=== PATIENT | male | born 1980 | race Caucasian/White ===

== ENCOUNTER 2021-01-22 14:24 | Inpatient (IN) | payer OTHER ==
[2021-01-22] MEDS ORDERED: SODIUM CHLORIDE 0.9% 500 ML INFUS.BAG IV ONE (15:26)
[2021-01-22] MEDS ORDERED: ACETAMINOPHEN 1000 MG/100 ML VIAL (NON FORMULARY) IVPB ONE (15:26)
[2021-01-22] MEDS ORDERED: SODIUM CHLORIDE 2,014 ML IV ONE (15:45)
[2021-01-22] MEDS ORDERED: ACETAMINOPHEN INJECTION 100 ML IVPB ONE (16:16)
[2021-01-22 16:58] LABS: HEMATOCRIT 35.2 % (35.4-49); HEMOGLOBIN 12.1 GM/dL (11.7-16.9); MCH 32.1 pg (25.7-33.7); MCHC 34.3 g/dl (32.0-35.9); MEAN CELL VOLUME 93.4 fl (80-96); PLATELET COUNT 248 10^3/uL (134-434); RBC 3.77 M/mm3 (4.00-5.60); RDW 13.3 % (11.9-15.9); WHITE BLOOD COUNT 12.4 K/mm3 (4.0-10.0)
[2021-01-22 17:08] LABS: CHLORIDE 91 mmol/L (98-107); SODIUM 129 mmol/L (136-145)
[2021-01-22 17:09] LABS: INR 1.26 (0.83-1.09); PROTHROMBIN TIME (PATIENT) 15.4 SEC (9.7-13.0)
[2021-01-22 17:10] LABS: CALCIUM 8.2 mg/dL (8.5-10.1)
[2021-01-22 17:11] LABS: ACTIVATED PTT 31.9 SECONDS (25.2-36.5); ALBUMIN 2.4 g/dl (3.4-5.0); ANION GAP 10 MMOL/L (8-16); BLOOD UREA NITROGEN 18.7 mg/dL (7-18); CO2 27 mmol/L (21-32); GLUCOSE,RANDOM 90 mg/dL (74-106)
[2021-01-22 17:14] LABS: CREATININE 1.2 mg/dL (0.55-1.3); SGOT/AST 22 U/L (15-37); SGPT/ALT 28 U/L (13-61)
[2021-01-22 17:15] LABS: BILIRUBIN,TOTAL 0.9 mg/dL (0.2-1); TOT PROT 7.1 g/dl (6.4-8.2)
[2021-01-22 17:16] LABS: ALK PHOS 118 U/L (45-117)
[2021-01-22 18:23] LABS: HIV INTERPRETATION NEGATIVE (NEGATIVE)
[2021-01-22 18:31] LABS: EPI CELLS 12 /uL (0-25.1); HYALINE CASTS 7 /uL (0-3.1); URINE APPEARANCE CLEAR; URINE BACTERIA 42 /uL (0-1359); URINE BILIRUBIN 1+ (NEGATIVE); URINE COLOR DK YELLOW; URINE GLUCOSE (UA) NEGATIVE (NEGATIVE); URINE KETONE TRACE (NEGATIVE); URINE LEUK ESTERASE NEGATIVE (NEGATIVE); URINE NITRITE NEGATIVE (NEGATIVE); URINE PROTEIN 1+ (NEGATIVE); URINE RBC 53 /uL (0-23.9); URINE UROBILINOGEN >=8.0 E.U./dl mg/dL (0.2-1.0); URINE WBC 30 /uL (0-25.8)
[2021-01-22] MEDS ORDERED: PIPERACILLIN/TAZOBACTAM 4.5 GM VIAL IVPB ONE (18:32)
[2021-01-22] MEDS ORDERED: VANCOMYCIN 1 GRAM (PRE-DOCKED) 1,000 MG/250 ML BAG IVPB ONE (18:32)
[2021-01-22] MEDS ORDERED: VANCOMYCIN 1,000 MG in DEXTROSE 5%-WATER - 250 ML IVPB ONE (18:32)
[2021-01-22] MEDS ORDERED: PIPERACILLIN/TAZOB 4.5 GM 4.5 GM/100 ML BAG IVPB ONE (19:23)
[2021-01-22] MEDS ORDERED: SENNOSIDES 8.6MG TABLET (FP) PO PRN (22:01)
[2021-01-22] MEDS ORDERED: SODIUM CHLORIDE 1,000 ML IV SCH (22:15)
[2021-01-22] MEDS ORDERED: DEXTROSE 5%-WATER 100 ML IVPB ONE (22:24)
[2021-01-22] MEDS ORDERED: DOXYCYCLINE HYCLATE 100 MG VIAL ONE (22:24)
[2021-01-22] MEDS: PIPERACILLIN/TAZOB 4.5 GM 4.5 GM in DEXTROSE 5%-WATER 100 ML IVPB SCH (22:33)
[2021-01-22 23:26] VITALS: BMI 20.9
[2021-01-22] MEDS: DOXYCYCLINE INJECTION 100 MG in DEXTROSE 5%-WATER 100 ML IVPB SCH (23:58)
[2021-01-23] MEDS ORDERED: DEXTROSE 5%-WATER 100 ML IVPB ONE ×6 (02:47→22:16)
[2021-01-23] MEDS ORDERED: PIPERACILLIN/TAZOBACTAM 4.5 GM VIAL IVPB ONE ×4 (02:47→22:16)
[2021-01-23] MEDS: PIPERACILLIN/TAZOB 4.5 GM 4.5 GM in DEXTROSE 5%-WATER 100 ML IVPB SCH ×3 (03:22→16:44)
[2021-01-23] MEDS ORDERED: methaDONE HCL 10 MG TABLET (FOR DETOX USE ONLY) PO SCH (06:46)
[2021-01-23] MEDS ORDERED: methaDONE HCL 10 MG TABLET ONE (06:52)
[2021-01-23] MEDS ORDERED: methaDONE HCL 40 MG DISPERSABLE TABLET ONE (06:52)
[2021-01-23] MEDS: methaDONE 80 MG, methaDONE 10 MG PO SCH (06:53)
[2021-01-23 08:35] LABS: BASO % 0.3 % (0-2.0); EOS % 1.8 % (0-4.5); HEMATOCRIT 33.2 % (35.4-49); HEMOGLOBIN 11.3 GM/dL (11.7-16.9); LYMPH % 5.3 % (8-40); MCH 32.4 pg (25.7-33.7); MCHC 33.9 g/dl (32.0-35.9); MEAN CELL VOLUME 95.5 fl (80-96); MEAN PLT VOLUME 8.5 fl (7.5-11.1); MONO % 13.7 % (3.8-10.2); NEUT % 78.9 % (42.8-82.8); PLATELET COUNT 240 10^3/uL (134-434); RBC 3.47 M/mm3 (4.00-5.60); WHITE BLOOD COUNT 17.3 K/mm3 (4.0-10.0)
[2021-01-23 08:51] LABS: BLOOD UREA NITROGEN 12.1 mg/dL (7-18); CALCIUM 7.4 mg/dL (8.5-10.1); MAGNESIUM 1.7 mg/dL (1.8-2.4)
[2021-01-23 08:55] LABS: CREATININE 0.9 mg/dL (0.55-1.3); PHOSPHOROUS 2.5 mg/dL (2.5-4.9)
[2021-01-23 08:56] LABS: BILIRUBIN,TOTAL 0.8 mg/dL (0.2-1); TOT PROT 5.6 g/dl (6.4-8.2)
[2021-01-23 08:58] LABS: ALBUMIN 1.8 g/dl (3.4-5.0)
[2021-01-23 09:36] LABS: PHENCYCLIDINE,URINE NEGATIVE (NEGATIVE); URINE BARBITURATES NEGATIVE (NEGATIVE)
[2021-01-23 10:13] LABS: COCAINE, UR POSITIVE (NEGATIVE); METHADONE, UR POSITIVE (NEGATIVE); OPIATES, URI POSITIVE (NEGATIVE); URINE AMPHETAMINES POSITIVE (NEGATIVE); URINE BENZODIAZEPINES POSITIVE (NEGATIVE)
[2021-01-23] MEDS: SODIUM CHLORIDE 1,000 ML IV SCH (10:20)
[2021-01-23 10:21] LABS: ANISOCYTOSIS 0; MACROCYTOSIS 0; PLATELET ESTIMATE NORMAL
[2021-01-23] MEDS ORDERED: DOXYCYCLINE HYCLATE 100 MG VIAL ONE ×2 (12:19→21:16)
[2021-01-23] MEDS: DOXYCYCLINE INJECTION 100 MG in DEXTROSE 5%-WATER 100 ML IVPB SCH ×2 (12:50→22:59)
[2021-01-23] MEDS: KCL 10 MEQ IVPB 10 MEQ/100 ML INFUS.BAG IVPB SCH ×4 (14:50→19:25)
[2021-01-23] MEDS: ACETAMINOPHEN 325 MG TABLET (FP) PO PRN (14:52)
[2021-01-23] MEDS ORDERED: PIPERACILLIN/TAZOB 4.5 GM 4.5 GM in DEXTROSE 5%-WATER 100 ML IVPB SCH (21:45)
[2021-01-24] MEDS: PIPERACILLIN/TAZOB 4.5 GM 4.5 GM in DEXTROSE 5%-WATER 100 ML IVPB SCH ×4 (00:02→19:51)
[2021-01-24] MEDS ORDERED: PIPERACILLIN/TAZOBACTAM 4.5 GM VIAL IVPB ONE ×3 (00:07→16:20)
[2021-01-24] MEDS ORDERED: DEXTROSE 5%-WATER 100 ML IVPB ONE ×5 (00:07→20:22)
[2021-01-24] MEDS ORDERED: methaDONE HCL 40 MG DISPERSABLE TABLET ONE (05:11)
[2021-01-24] MEDS ORDERED: methaDONE HCL 10 MG TABLET ONE (05:11)
[2021-01-24] MEDS: methaDONE 80 MG, methaDONE 10 MG PO SCH (05:18)
[2021-01-24] MEDS: SODIUM CHLORIDE 1,000 ML IV SCH ×2 (05:39→15:37)
[2021-01-24 09:19] LABS: BASO % 0.4 % (0-2.0); EOS % 1.4 % (0-4.5); HEMATOCRIT 31.6 % (35.4-49); HEMOGLOBIN 10.9 GM/dL (11.7-16.9); MCH 32.5 pg (25.7-33.7); MCHC 34.4 g/dl (32.0-35.9); MEAN CELL VOLUME 94.6 fl (80-96); MEAN PLT VOLUME 8.2 fl (7.5-11.1); MONO % 10.1 % (3.8-10.2); NEUT % 84.1 % (42.8-82.8); PLATELET COUNT 260 10^3/uL (134-434); RBC 3.34 M/mm3 (4.00-5.60); RDW 13.2 % (11.9-15.9); WHITE BLOOD COUNT 16.7 K/mm3 (4.0-10.0)
[2021-01-24 10:10] LABS: CALCIUM 7.5 mg/dL (8.5-10.1)
[2021-01-24 10:11] LABS: BLOOD UREA NITROGEN 6.1 mg/dL (7-18)
[2021-01-24 10:14] LABS: CREATININE 0.6 mg/dL (0.55-1.3)
[2021-01-24] MEDS ORDERED: MAGNESIUM 2GM/50ML STERILE WATER IVPB IVPB ONE ×2 (10:35→18:15)
[2021-01-24] MEDS ORDERED: DOXYCYCLINE HYCLATE 100 MG VIAL ONE ×2 (10:41→20:21)
[2021-01-24 10:58] LABS: ANISOCYTOSIS 1+; MACROCYTOSIS 0; PLATELET ESTIMATE NORMAL
[2021-01-24] MEDS: DOXYCYCLINE INJECTION 100 MG in DEXTROSE 5%-WATER 100 ML IVPB SCH ×2 (11:41→21:02)
[2021-01-24] MEDS: guaiFENesin 600 MG TABLET.ER (FP) PO SCH ×2 (13:53→21:02)
[2021-01-24] MEDS: KCL 10 MEQ IVPB 10 MEQ/100 ML INFUS.BAG IVPB SCH ×3 (15:18→19:59)
[2021-01-24] MEDS: guaiFENesin/CODEINE 10 ML UNIT-DOSE CUPS PO PRN ×2 (15:38→23:35)
[2021-01-24] MEDS ORDERED: POTASSIUM CHLORIDE TABS 20 MEQ TABLET.ER (FP) PO ONE (19:57)
[2021-01-24] MEDS: ACETAMINOPHEN 325 MG TABLET (FP) PO PRN (22:11)
[2021-01-24] MEDS ORDERED: SODIUM CHLORIDE 1,000 ML IV STA (22:46)
[2021-01-25] MEDS ORDERED: PIPERACILLIN/TAZOBACTAM 4.5 GM VIAL IVPB ONE ×3 (01:27→16:57)
[2021-01-25] MEDS ORDERED: DEXTROSE 5%-WATER 100 ML IVPB ONE ×5 (01:27→20:50)
[2021-01-25] MEDS: PIPERACILLIN/TAZOB 4.5 GM 4.5 GM in DEXTROSE 5%-WATER 100 ML IVPB SCH ×3 (01:42→17:19)
[2021-01-25] MEDS ORDERED: methaDONE HCL 40 MG DISPERSABLE TABLET ONE (04:59)
[2021-01-25] MEDS ORDERED: methaDONE HCL 10 MG TABLET ONE (05:00)
[2021-01-25] MEDS: methaDONE 80 MG, methaDONE 10 MG PO SCH (05:05)
[2021-01-25] MEDS: SODIUM CHLORIDE 1,000 ML IV SCH ×2 (08:54→12:15)
[2021-01-25] MEDS: guaiFENesin/CODEINE 10 ML UNIT-DOSE CUPS PO PRN ×2 (08:54→17:19)
[2021-01-25 08:58] LABS: BASO % 0.3 % (0-2.0); EOS % 2.4 % (0-4.5); HEMATOCRIT 31.6 % (35.4-49); HEMOGLOBIN 10.8 GM/dL (11.7-16.9); LYMPH % 5.3 % (8-40); MCH 32.8 pg (25.7-33.7); MCHC 34.2 g/dl (32.0-35.9); MEAN PLT VOLUME 7.7 fl (7.5-11.1); MONO % 8.6 % (3.8-10.2); NEUT % 83.4 % (42.8-82.8); PLATELET COUNT 302 10^3/uL (134-434); RBC 3.29 M/mm3 (4.00-5.60); RDW 13.7 % (11.9-15.9); WHITE BLOOD COUNT 11.8 K/mm3 (4.0-10.0)
[2021-01-25 09:22] LABS: BLOOD UREA NITROGEN 4.6 mg/dL (7-18); CALCIUM 7.6 mg/dL (8.5-10.1)
[2021-01-25 09:25] LABS: CREATININE 0.6 mg/dL (0.55-1.3)
[2021-01-25] MEDS ORDERED: DOXYCYCLINE HYCLATE 100 MG VIAL ONE ×2 (09:52→20:50)
[2021-01-25] MEDS: guaiFENesin 600 MG TABLET.ER (FP) PO SCH ×2 (10:29→21:16)
[2021-01-25] MEDS: DOXYCYCLINE INJECTION 100 MG in DEXTROSE 5%-WATER 100 ML IVPB SCH ×2 (10:29→21:16)
[2021-01-25] MEDS: VANCOMYCIN 1 GM in D5W (PRE-DOCKED) 1,000 MG/250 ML IVPB SCH (12:15)
[2021-01-25 12:40] LABS: ANISOCYTOSIS 1+; MACROCYTOSIS 0; PLATELET ESTIMATE NORMAL; TOXIC GRANULATION 2+
[2021-01-25] MEDS: ACETAMINOPHEN 325 MG TABLET (FP) PO PRN (17:19)
[2021-01-25] MEDS: LORazepam 1 MG TABLET PO PRN (21:15)
[2021-01-26] MEDS: VANCOMYCIN 1 GM in D5W (PRE-DOCKED) 1,000 MG/250 ML IVPB SCH ×3 (00:24→23:40)
[2021-01-26] MEDS: guaiFENesin/CODEINE 10 ML UNIT-DOSE CUPS PO PRN ×2 (00:30→17:27)
[2021-01-26] MEDS ORDERED: DEXTROSE 5%-WATER 100 ML IVPB ONE ×5 (00:36→20:36)
[2021-01-26] MEDS ORDERED: PIPERACILLIN/TAZOBACTAM 4.5 GM VIAL IVPB ONE ×3 (00:36→17:22)
[2021-01-26] MEDS: PIPERACILLIN/TAZOB 4.5 GM 4.5 GM in DEXTROSE 5%-WATER 100 ML IVPB SCH ×3 (02:40→17:32)
[2021-01-26] MEDS ORDERED: methaDONE HCL 40 MG DISPERSABLE TABLET ONE (06:24)
[2021-01-26] MEDS ORDERED: methaDONE HCL 10 MG TABLET ONE (06:24)
[2021-01-26] MEDS: methaDONE 80 MG, methaDONE 10 MG PO SCH (06:36)
[2021-01-26 08:31] LABS: BASO % 0.4 % (0-2.0); EOS % 2.1 % (0-4.5); HEMATOCRIT 31.3 % (35.4-49); HEMOGLOBIN 10.7 GM/dL (11.7-16.9); MCH 32.8 pg (25.7-33.7); MCHC 34.2 g/dl (32.0-35.9); MEAN CELL VOLUME 95.7 fl (80-96); MEAN PLT VOLUME 7.5 fl (7.5-11.1); MONO % 7.4 % (3.8-10.2); NEUT % 83.1 % (42.8-82.8); PLATELET COUNT 379 10^3/uL (134-434); RBC 3.27 M/mm3 (4.00-5.60); RDW 13.7 % (11.9-15.9); WHITE BLOOD COUNT 12.4 K/mm3 (4.0-10.0)
[2021-01-26 08:49] LABS: BLOOD UREA NITROGEN 4.2 mg/dL (7-18); CALCIUM 7.8 mg/dL (8.5-10.1)
[2021-01-26 08:53] LABS: CREATININE 0.7 mg/dL (0.55-1.3)
[2021-01-26] MEDS ORDERED: DOXYCYCLINE HYCLATE 100 MG VIAL ONE ×2 (10:15→20:35)
[2021-01-26] MEDS: DOXYCYCLINE INJECTION 100 MG in DEXTROSE 5%-WATER 100 ML IVPB SCH ×2 (10:27→21:13)
[2021-01-26] MEDS: guaiFENesin 600 MG TABLET.ER (FP) PO SCH ×2 (10:27→21:13)
[2021-01-26 11:57] LABS: ANISOCYTOSIS 0; MACROCYTOSIS 0; PLATELET ESTIMATE NORMAL
[2021-01-26] MEDS: SODIUM CHLORIDE 1,000 ML IV SCH (13:42)
[2021-01-26] MEDS: LORazepam 1 MG TABLET PO PRN ×2 (17:27→23:40)
[2021-01-27] MEDS ORDERED: MELATONIN 5 MG TABLETS PO ONE (00:15)
[2021-01-27] MEDS: guaiFENesin/CODEINE 10 ML UNIT-DOSE CUPS PO PRN (00:53)
[2021-01-27] MEDS ORDERED: DEXTROSE 5%-WATER 100 ML IVPB ONE ×4 (01:20→17:31)
[2021-01-27] MEDS ORDERED: PIPERACILLIN/TAZOBACTAM 4.5 GM VIAL IVPB ONE ×3 (01:20→17:31)
[2021-01-27] MEDS: PIPERACILLIN/TAZOB 4.5 GM 4.5 GM in DEXTROSE 5%-WATER 100 ML IVPB SCH ×3 (02:48→18:15)
[2021-01-27] MEDS ORDERED: methaDONE HCL 40 MG DISPERSABLE TABLET ONE (06:07)
[2021-01-27] MEDS ORDERED: methaDONE HCL 10 MG TABLET ONE (06:08)
[2021-01-27] MEDS: methaDONE 80 MG, methaDONE 10 MG PO SCH (06:40)
[2021-01-27] MEDS ORDERED: DOXYCYCLINE HYCLATE 100 MG VIAL ONE (09:52)
[2021-01-27] MEDS: DOXYCYCLINE INJECTION 100 MG in DEXTROSE 5%-WATER 100 ML IVPB SCH (09:54)
[2021-01-27] MEDS: LORazepam 1 MG TABLET PO PRN (09:54)
[2021-01-27] MEDS: guaiFENesin 600 MG TABLET.ER (FP) PO SCH (09:54)
[2021-01-27 10:04] LABS: BASO % 0.5 % (0-2.0); EOS % 1.9 % (0-4.5); HEMATOCRIT 29.6 % (35.4-49); HEMOGLOBIN 10.3 GM/dL (11.7-16.9); LYMPH % 8.1 % (8-40); MCH 33.5 pg (25.7-33.7); MEAN CELL VOLUME 95.7 fl (80-96); MEAN PLT VOLUME 7.3 fl (7.5-11.1); MONO % 7.7 % (3.8-10.2); NEUT % 81.8 % (42.8-82.8); PLATELET COUNT 441 10^3/uL (134-434); RBC 3.09 M/mm3 (4.00-5.60); RDW 13.4 % (11.9-15.9)
[2021-01-27 10:29] LABS: BLOOD UREA NITROGEN 4.1 mg/dL (7-18); CALCIUM 7.9 mg/dL (8.5-10.1)
[2021-01-27 10:32] LABS: CREATININE 0.6 mg/dL (0.55-1.3)
[2021-01-27 11:00] LABS: ANISOCYTOSIS 0; MACROCYTOSIS 0; PLATELET ESTIMATE NORMAL
[2021-01-27] MEDS: SODIUM CHLORIDE 1,000 ML IV SCH (12:31)
[2021-01-27] MEDS: VANCOMYCIN 1 GM in D5W (PRE-DOCKED) 1,000 MG/250 ML IVPB SCH (12:31)
[2021-01-27 18:44] VITALS: BP 99/52; PULSE 98; TEMP 98.1
[2021-01-28] MEDS ORDERED: VANCOMYCIN 1 GRAM (PRE-DOCKED) 1,000 MG/250 ML BAG IVPB SCH
== END 2021-01-27 18:53 | disposition left against medical advice (07) | DRG 720 ==
LOC: JER 14:24 → JERBED 16:07 → J5S 21:53
PROVIDERS: ADMIT Internal Medicine; ATTEND Internal Medicine
DX: A41.9 Sepsis, unspecified organism (principal); J85.1 Abscess of lung with pneumonia; E87.1 Hypo-osmolality and hyponatremia; E83.51 Hypocalcemia; E88.09 Other disorders of plasma-protein metabolism, not elsewhere classified; R04.2 Hemoptysis; F17.210 Nicotine dependence, cigarettes, uncomplicated; F10.10 Alcohol abuse, uncomplicated; R16.1 Splenomegaly, not elsewhere classified; K21.9 Gastro-esophageal reflux disease without esophagitis; R91.1 Solitary pulmonary nodule; F11.20 Opioid dependence, uncomplicated
CPT/HCPCS: 36415; 71275-TC; 76705-TC; 80048; 80053; 80307; 81003; 82550; 82570; 83605; 83735; 83930; 83935; 84100; 84300; 84484; 85025; 85027; 85610; 85730; 86480; 86850; 86900; 86901; 87040; 87070; 87086; 87102; 87116; 87186; 87205; 87206; 87210; 87389; 87899; 93005; 93010; 99285-25; C9803; G0480; J0131; Q9967; U0003; U0005

== ENCOUNTER 2021-03-31 15:14 | Observation (INO) | payer OTHER ==
[2021-03-31 15:55] VITALS: BMI 24.4
[2021-03-31 16:51] LABS: BASO % 1.2 % (0-2.0); EOS % 6.6 % (0-4.5); HEMATOCRIT 40.2 % (35.4-49); HEMOGLOBIN 13.6 GM/dL (11.7-16.9); LYMPH % 21.1 % (8-40); MCHC 33.9 g/dl (32.0-35.9); MEAN CELL VOLUME 97.1 fl (80-96); MEAN PLT VOLUME 7.4 fl (7.5-11.1); MONO % 17.9 % (3.8-10.2); NEUT % 53.2 % (42.8-82.8); PLATELET COUNT 205 10^3/uL (134-434); RBC 4.14 M/mm3 (4.00-5.60); WHITE BLOOD COUNT 4.3 K/mm3 (4.0-10.0)
[2021-03-31 18:09] LABS: BLOOD UREA NITROGEN 13.2 mg/dL (7-18); CALCIUM 8.3 mg/dL (8.5-10.1); CHLORIDE 105 mmol/L (98-107); CO2 28 mmol/L (21-32); CREATININE 0.6 mg/dL (0.55-1.3); GLUCOSE,RANDOM 97 mg/dL (74-106); SODIUM 140 mmol/L (136-145); TOT PROT 6.9 g/dl (6.4-8.2)
[2021-03-31 18:10] LABS: ALBUMIN 2.5 g/dl (3.4-5.0); ALK PHOS 111 U/L (45-117); BILIRUBIN,TOTAL 0.4 mg/dL (0.2-1); SGOT/AST 56 U/L (15-37); SGPT/ALT 59 U/L (13-61)
[2021-03-31 18:11] LABS: ANION GAP 7 MMOL/L (8-16)
[2021-03-31] MEDS ORDERED: FOLIC ACID INJECTION - 1 MG, THIAMINE HCL 100 MG, MULTIVIT INJECTION ADULT 10 ML in SOD... IVPB ONE (21:26)
[2021-03-31] MEDS ORDERED: LORazepam 2 MG/ML SDV VIAL IVPUSH PRN (21:27)
[2021-03-31] MEDS ORDERED: KCL 10 MEQ IVPB 30 MEQ/300 ML INFUS.BAG IVPB ONE (21:45)
[2021-03-31] MEDS ORDERED: DEXTROSE 5%-NORMAL SALINE 1,000 ML IV SCH (22:00)
[2021-03-31] MEDS: KCL 10 MEQ IVPB 10 MEQ/100 ML INFUS.BAG IVPB SCH (22:06)
[2021-03-31] MEDS: NICOTINE 21 MG/24 HOURS TOPICAL PATCH TD SCH (22:22)
[2021-04-01 00:53] VITALS: TEMP 98.4
[2021-04-01] MEDS: KCL 10 MEQ IVPB 10 MEQ/100 ML INFUS.BAG IVPB SCH ×2 (01:11→02:11)
[2021-04-01 04:40] LABS: URINE APPEARANCE CLOUDY; URINE BILIRUBIN NEGATIVE (NEGATIVE); URINE COLOR DK YELLOW; URINE GLUCOSE (UA) NEGATIVE (NEGATIVE); URINE KETONE TRACE (NEGATIVE); URINE PROTEIN NEGATIVE (NEGATIVE)
[2021-04-01 04:41] LABS: URINE LEUK ESTERASE NEGATIVE (NEGATIVE); URINE NITRITE NEGATIVE (NEGATIVE)
[2021-04-01 04:45] LABS: URINE AMPHETAMINES NEGATIVE (NEGATIVE); URINE BARBITURATES NEGATIVE (NEGATIVE)
[2021-04-01 04:47] LABS: COCAINE, UR POSITIVE (NEGATIVE); OPIATES, URI NEGATIVE (NEGATIVE); PHENCYCLIDINE,URINE POSITIVE (NEGATIVE); URINE BENZODIAZEPINES POSITIVE (NEGATIVE)
[2021-04-01 04:48] LABS: METHADONE, UR POSITIVE (NEGATIVE)
[2021-04-01 08:32] LABS: HEMATOCRIT 44.7 % (35.4-49); HEMOGLOBIN 15.1 GM/dL (11.7-16.9); MCH 33.1 pg (25.7-33.7); MCHC 33.7 g/dl (32.0-35.9); MEAN CELL VOLUME 98.4 fl (80-96); MEAN PLT VOLUME 8.3 fl (7.5-11.1); PLATELET COUNT 205 10^3/uL (134-434); RBC 4.55 M/mm3 (4.00-5.60); RDW 14.9 % (11.9-15.9); WHITE BLOOD COUNT 9.4 K/mm3 (4.0-10.0)
[2021-04-01 08:33] LABS: BASO % 0.4 % (0-2.0); EOS % 1.4 % (0-4.5); LYMPH % 6.6 % (8-40); MONO % 8.5 % (3.8-10.2); NEUT % 83.1 % (42.8-82.8)
[2021-04-01 08:51] LABS: BLOOD UREA NITROGEN 10.7 mg/dL (7-18); CALCIUM 8.5 mg/dL (8.5-10.1); CHLORIDE 101 mmol/L (98-107); CO2 32 mmol/L (21-32); CREATININE 0.7 mg/dL (0.55-1.3); GLUCOSE,RANDOM 79 mg/dL (74-106); PHOSPHOROUS 2.3 mg/dL (2.5-4.9); SODIUM 137 mmol/L (136-145)
[2021-04-01 08:52] LABS: ALBUMIN 2.6 g/dl (3.4-5.0); ALK PHOS 118 U/L (45-117); BILIRUBIN,TOTAL 0.8 mg/dL (0.2-1); SGOT/AST 48 U/L (15-37); SGPT/ALT 54 U/L (13-61); TOT PROT 7.2 g/dl (6.4-8.2)
[2021-04-01] MEDS ORDERED: THIAMINE HCL 100 MG TABLET (FP) ONE (09:20)
[2021-04-01] MEDS ORDERED: ENOXAPARIN NA (PORCINE) 40 MG/0.4 ML DISP.SYRIN SQ ONE (09:21)
[2021-04-01] MEDS ORDERED: FOLIC ACID 1 MG TABLET (FP) ONE (09:21)
[2021-04-01] MEDS: NICOTINE 21 MG/24 HOURS TOPICAL PATCH TD SCH (09:31)
[2021-04-01] MEDS ORDERED: FOLIC ACID 1 MG TABLET (FP) PO SCH (10:00)
[2021-04-01] MEDS ORDERED: THIAMINE HCL 100 MG TABLET (FP) PO SCH ×2 (10:00)
[2021-04-01] MEDS ORDERED: ENOXAPARIN NA (PORCINE) 40 MG/0.4 ML DISP.SYRIN SQ SCH (10:00)
[2021-04-01] MEDS ORDERED: methaDONE HCL 10 MG TABLET PO SCH (10:15)
[2021-04-01] MEDS ORDERED: LORazepam 2 MG/ML SDV VIAL ONE (12:47)
[2021-04-01] MEDS ORDERED: NAPH,MB-DB/K PH,MBDB POWDER PACKET PO SCH (14:00)
[2021-04-01] MEDS ORDERED: NAPH,MB-DB/K PH,MBDB POWDER PACKET ONE (15:09)
[2021-04-01 15:18] VITALS: BP 115/81; PULSE 73
== END 2021-04-01 22:20 | disposition left against medical advice (07) ==
LOC: JER 15:14 → UNDOADMOB 20:20 → JERBED 20:20 → INTOOBSV 20:20
PROVIDERS: ADMIT Internal Medicine; ATTEND Internal Medicine
PROC: 3E023GC Introduction of Other Therapeutic Substance into Muscle, Percutaneous Approach (ICD-10-PCS; principal; 2021-03-31)
PROC: 3E033NZ Introduction of Analgesics, Hypnotics, Sedatives into Peripheral Vein, Percutaneous Approach (ICD-10-PCS; 2021-03-31)
PROC: 3E033GC Introduction of Other Therapeutic Substance into Peripheral Vein, Percutaneous Approach (ICD-10-PCS; 2021-03-31)
DX: F19.10 Other psychoactive substance abuse, uncomplicated (principal); R55 Syncope and collapse; R73.03 Prediabetes; R41.82 Altered mental status, unspecified; Z29.9 Encounter for prophylactic measures, unspecified; B19.20 Unspecified viral hepatitis C without hepatic coma; B02.9 Zoster without complications; Z87.828 Personal history of other (healed) physical injury and trauma; K21.9 Gastro-esophageal reflux disease without esophagitis; G40.89 Other seizures
CPT/HCPCS: 36415; 70450-TC; 71045-TC-FY; 72125-TC; 80053; 80307; 81003; 83735; 84100; 84484; 85025; 93005; 93010; 96365; 96367; 96372; 96375; 99285-25; C9803; G0378; U0003; U0005

== ENCOUNTER 2021-04-04 11:33 | Inpatient (IN) | payer OTHER ==
[2021-04-04 12:50] VITALS: BMI 19.5
[2021-04-04] MEDS ORDERED: MAGNESIUM CITRATE 300 ML BOTTLE PO PRN (13:57)
[2021-04-04] MEDS ORDERED: cloNIDine HCL 0.1 MG TABLET PO PRN (13:57)
[2021-04-04] MEDS ORDERED: BISMUTH SUBSALICYLATE 524 MG/30 ML PO PRN (13:57)
[2021-04-04] MEDS ORDERED: ACETAMINOPHEN 325 MG TABLET (FP) PO PRN ×2 (13:57)
[2021-04-04] MEDS ORDERED: METHOCARBAMOL 500 MG TABLET PO PRN (13:57)
[2021-04-04] MEDS ORDERED: MAGNESIUM HYDROX 2400MG/30ML ORAL SUSPENSION 30 ML CUP PO PRN (13:57)
[2021-04-04] MEDS ORDERED: ONDANSETRON *ODT* 4 MG TABLET SL PRN (13:57)
[2021-04-04] MEDS ORDERED: MENTHOL/PHENOL 1 EACH UD MM PRN (13:57)
[2021-04-04] MEDS ORDERED: MAG HYDROX/AL HYDROX/SIMETH 30 ML UNIT-DOSE CUP PO PRN (13:57)
[2021-04-04] MEDS ORDERED: IBUPROFEN 400 MG TABLET (FP) PO PRN (13:57)
[2021-04-04] MEDS ORDERED: methaDONE HCL 10 MG TABLET (FOR DETOX USE ONLY) PO ONE (13:57)
[2021-04-04] MEDS ORDERED: methaDONE HCL 10 MG TABLET PO ONE (15:29)
[2021-04-04] MEDS ORDERED: methaDONE 80 MG, methaDONE 10 MG PO ONE (16:00)
[2021-04-04] MEDS ORDERED: diazePAM 5 MG TABLET ONE (16:14)
[2021-04-04] MEDS: diazePAM 5 MG TABLET PO PRN (16:22)
[2021-04-04] MEDS ORDERED: methaDONE HCL 40 MG DISPERSABLE TABLET ONE (17:41)
[2021-04-04] MEDS ORDERED: methaDONE HCL 10 MG TABLET ONE (17:41)
[2021-04-04] MEDS: NICOTINE 14 MG/24 HOURS TOPICAL PATCH TD SCH (17:44)
[2021-04-04] MEDS: PRENATAL VITAMINS W/ FOLIC ACID TABLET (FP) PO SCH (17:45)
[2021-04-04] MEDS: hydrOXYzine PAMOATE 25 MG CAPSULE (FP) PO SCH ×3 (17:45→22:19)
[2021-04-04] MEDS: diazePAM 5 MG TABLET PO SCH ×2 (17:48→22:20)
[2021-04-04] MEDS ORDERED: CYCLOBENZAPRINE HCL 10 MG TABLET (FP) PO SCH (22:00)
[2021-04-04] MEDS: IBUPROFEN 400 MG TABLET (FP) PO SCH (22:18)
[2021-04-04] MEDS: THIAMINE HCL 100 MG TABLET (FP) PO SCH (22:19)
[2021-04-04] MEDS: MELATONIN 5 MG TABLETS PO SCH (22:20)
[2021-04-05] MEDS ORDERED: methaDONE HCL 10 MG TABLET ONE (04:35)
[2021-04-05] MEDS ORDERED: methaDONE HCL 40 MG DISPERSABLE TABLET ONE (04:36)
[2021-04-05] MEDS: methaDONE 80 MG, methaDONE 10 MG PO SCH (05:41)
[2021-04-05] MEDS: diazePAM 5 MG TABLET PO SCH ×4 (05:41→22:38)
[2021-04-05] MEDS ORDERED: methaDONE HCL 10 MG TABLET PO SCH (06:00)
[2021-04-05] MEDS: hydrOXYzine PAMOATE 25 MG CAPSULE (FP) PO SCH ×2 (06:40→10:17)
[2021-04-05] MEDS: IBUPROFEN 400 MG TABLET (FP) PO SCH ×2 (10:16→22:37)
[2021-04-05] MEDS: NICOTINE 14 MG/24 HOURS TOPICAL PATCH TD SCH (10:16)
[2021-04-05] MEDS: PRENATAL VITAMINS W/ FOLIC ACID TABLET (FP) PO SCH (10:17)
[2021-04-05 10:25] LABS: HEMATOCRIT 41.4 % (35.4-49); MCH 33.1 pg (25.7-33.7); MCHC 33.7 g/dl (32.0-35.9); MEAN CELL VOLUME 98.1 fl (80-96); MEAN PLT VOLUME 8.4 fl (7.5-11.1); PLATELET COUNT 278 10^3/uL (134-434); RBC 4.22 M/mm3 (4.00-5.60); RDW 14.7 % (11.9-15.9); WHITE BLOOD COUNT 5.3 K/mm3 (4.0-10.0)
[2021-04-05 11:08] LABS: ALBUMIN 2.7 g/dl (3.4-5.0); BLOOD UREA NITROGEN 10.4 mg/dL (7-18)
[2021-04-05 11:11] LABS: CALCIUM 8.8 mg/dL (8.5-10.1); CREATININE 0.8 mg/dL (0.55-1.3)
[2021-04-05 11:12] LABS: BILIRUBIN,TOTAL 0.6 mg/dL (0.2-1)
[2021-04-05 11:13] LABS: TOT PROT 7.6 g/dl (6.4-8.2)
[2021-04-05] MEDS: CYCLOBENZAPRINE HCL 10 MG TABLET (FP) PO PRN ×2 (12:53→22:39)
[2021-04-05] MEDS: THIAMINE HCL 100 MG TABLET (FP) PO SCH (22:37)
[2021-04-05] MEDS: MELATONIN 5 MG TABLETS PO SCH (22:38)
[2021-04-06] MEDS ORDERED: methaDONE HCL 10 MG TABLET ONE (04:52)
[2021-04-06] MEDS ORDERED: methaDONE HCL 40 MG DISPERSABLE TABLET ONE (04:52)
[2021-04-06] MEDS: diazePAM 5 MG TABLET PO SCH ×3 (05:39→22:24)
[2021-04-06] MEDS: methaDONE 80 MG, methaDONE 10 MG PO SCH (05:39)
[2021-04-06] MEDS ORDERED: methaDONE HCL 10 MG TABLET (FOR DETOX USE ONLY) PO ONE (10:00)
[2021-04-06] MEDS: IBUPROFEN 400 MG TABLET (FP) PO SCH ×2 (10:12→22:22)
[2021-04-06] MEDS: CYCLOBENZAPRINE HCL 10 MG TABLET (FP) PO PRN ×2 (10:12→22:22)
[2021-04-06] MEDS: hydrOXYzine PAMOATE 25 MG CAPSULE (FP) PO PRN (10:12)
[2021-04-06] MEDS: NICOTINE 14 MG/24 HOURS TOPICAL PATCH TD SCH (10:13)
[2021-04-06] MEDS: PRENATAL VITAMINS W/ FOLIC ACID TABLET (FP) PO SCH (10:13)
[2021-04-06] MEDS: diazePAM 5 MG TABLET PO PRN (10:14)
[2021-04-06] MEDS ORDERED: PANTOPRAZOLE 40 MG TABLET PO ONE (10:59)
[2021-04-06] MEDS: THIAMINE HCL 100 MG TABLET (FP) PO SCH (22:22)
[2021-04-06] MEDS: MELATONIN 5 MG TABLETS PO SCH (22:22)
[2021-04-07] MEDS ORDERED: methaDONE HCL 10 MG TABLET ONE (04:04)
[2021-04-07] MEDS ORDERED: methaDONE HCL 40 MG DISPERSABLE TABLET ONE (04:05)
[2021-04-07] MEDS: methaDONE 80 MG, methaDONE 10 MG PO SCH (05:46)
[2021-04-07] MEDS: diazePAM 5 MG TABLET PO SCH ×2 (05:46→17:43)
[2021-04-07] MEDS: IBUPROFEN 400 MG TABLET (FP) PO SCH ×2 (10:44→22:14)
[2021-04-07] MEDS: hydrOXYzine PAMOATE 25 MG CAPSULE (FP) PO PRN (10:44)
[2021-04-07] MEDS: CYCLOBENZAPRINE HCL 10 MG TABLET (FP) PO PRN ×2 (10:45→17:43)
[2021-04-07] MEDS: PRENATAL VITAMINS W/ FOLIC ACID TABLET (FP) PO SCH (10:45)
[2021-04-07] MEDS: NICOTINE 14 MG/24 HOURS TOPICAL PATCH TD SCH (10:45)
[2021-04-07] MEDS: PANTOPRAZOLE 40 MG TABLET PO SCH (10:45)
[2021-04-07] MEDS: diazePAM 5 MG TABLET PO PRN (10:45)
[2021-04-07] MEDS: THIAMINE HCL 100 MG TABLET (FP) PO SCH (22:14)
[2021-04-07] MEDS: MELATONIN 5 MG TABLETS PO SCH (22:15)
[2021-04-08] MEDS ORDERED: methaDONE HCL 40 MG DISPERSABLE TABLET ONE (04:02)
[2021-04-08] MEDS ORDERED: methaDONE HCL 10 MG TABLET ONE (04:02)
[2021-04-08] MEDS: methaDONE 80 MG, methaDONE 10 MG PO SCH (05:52)
[2021-04-08] MEDS ORDERED: diazePAM 5 MG TABLET PO ONE (06:00)
[2021-04-08 09:34] VITALS: BP 95/65; PULSE 85; TEMP 96.7
[2021-04-08] MEDS ORDERED: methaDONE HCL 10 MG TABLET (FOR DETOX USE ONLY) PO ONE (10:00)
[2021-04-08] MEDS: IBUPROFEN 400 MG TABLET (FP) PO SCH (10:01)
[2021-04-08] MEDS: PANTOPRAZOLE 40 MG TABLET PO SCH (10:01)
[2021-04-08] MEDS: PRENATAL VITAMINS W/ FOLIC ACID TABLET (FP) PO SCH (10:02)
[2021-04-08] MEDS: NICOTINE 14 MG/24 HOURS TOPICAL PATCH TD SCH (10:03)
== END 2021-04-08 10:45 | disposition home or self-care (01) | DRG 773 ==
LOC: YASAS 11:33 → Y3N 16:19
PROVIDERS: ADMIT Allergy & Immunology; ATTEND Allergy & Immunology
PROC: HZ2ZZZZ Detoxification Services for Substance Abuse Treatment (ICD-10-PCS; principal; 2021-04-04)
DX: F10.230 Alcohol dependence with withdrawal, uncomplicated (principal); F11.20 Opioid dependence, uncomplicated; F14.20 Cocaine dependence, uncomplicated; F13.20 Sedative, hypnotic or anxiolytic dependence, uncomplicated; F16.10 Hallucinogen abuse, uncomplicated; F17.210 Nicotine dependence, cigarettes, uncomplicated; F19.24 Other psychoactive substance dependence with psychoactive substance-induced mood disorder; F41.9 Anxiety disorder, unspecified; G47.00 Insomnia, unspecified; H54.62 Unqualified visual loss, left eye, normal vision right eye; K21.9 Gastro-esophageal reflux disease without esophagitis; B18.2 Chronic viral hepatitis C; Z87.828 Personal history of other (healed) physical injury and trauma; Z87.820 Personal history of traumatic brain injury; Z56.0 Unemployment, unspecified; Z91.14 Patient's other noncompliance with medication regimen
CPT/HCPCS: 36415; 80053; 85027; 86780; C9803; U0003; U0005

== ENCOUNTER 2021-05-01 10:20 | Inpatient (IN) | payer OTHER ==
[2021-05-01 11:05] VITALS: BMI 20.5
[2021-05-01] MEDS ORDERED: ACETAMINOPHEN 325 MG TABLET (FP) PO PRN ×2 (11:06)
[2021-05-01] MEDS ORDERED: MENTHOL/PHENOL 1 EACH UD MM PRN (11:06)
[2021-05-01] MEDS ORDERED: METHOCARBAMOL 500 MG TABLET PO PRN (11:06)
[2021-05-01] MEDS ORDERED: MAGNESIUM CITRATE 300 ML BOTTLE PO PRN (11:06)
[2021-05-01] MEDS ORDERED: BISMUTH SUBSALICYLATE 262 MG/15 ML BTL PO PRN (11:06)
[2021-05-01] MEDS ORDERED: MAGNESIUM HYDROX 2400MG/30ML ORAL SUSPENSION 30 ML CUP PO PRN (11:06)
[2021-05-01] MEDS ORDERED: ONDANSETRON *ODT* 4 MG TABLET SL PRN (11:06)
[2021-05-01] MEDS: NICOTINE 14 MG/24 HOURS TOPICAL PATCH TD SCH (12:31)
[2021-05-01] MEDS: diazePAM 5 MG TABLET PO SCH ×3 (12:31→22:30)
[2021-05-01] MEDS: diazePAM 5 MG TABLET PO PRN (12:31)
[2021-05-01] MEDS: PRENATAL VITAMINS W/ FOLIC ACID TABLET (FP) PO SCH (12:32)
[2021-05-01] MEDS ORDERED: hydrOXYzine PAMOATE 25 MG CAPSULE (FP) PO SCH (14:00)
[2021-05-01] MEDS: NICOTINE 10 MG CARTRIDGE (INHALER) IH PRN (15:28)
[2021-05-01] MEDS: HYDROCORTISONE 1% TOPICAL OINT 30 GM TUBE TP PRN ×2 (15:28→22:29)
[2021-05-01 15:51] LABS: HEMATOCRIT 41.1 % (35.4-49); HEMOGLOBIN 13.7 GM/dL (11.7-16.9); MCH 31.6 pg (25.7-33.7); MCHC 33.3 g/dl (32.0-35.9); MEAN PLT VOLUME 8.1 fl (7.5-11.1); PLATELET COUNT 192 10^3/uL (134-434); RBC 4.33 M/mm3 (4.00-5.60); RDW 14.3 % (11.9-15.9); WHITE BLOOD COUNT 5.5 K/mm3 (4.0-10.0)
[2021-05-01 15:57] LABS: CALCIUM 8.8 mg/dL (8.5-10.1)
[2021-05-01 15:58] LABS: ALBUMIN 2.7 g/dl (3.4-5.0); BLOOD UREA NITROGEN 10.7 mg/dL (7-18)
[2021-05-01 16:00] LABS: BILIRUBIN,TOTAL 0.3 mg/dL (0.2-1)
[2021-05-01 16:01] LABS: CREATININE 1.1 mg/dL (0.55-1.3)
[2021-05-01 16:02] LABS: TOT PROT 6.9 g/dl (6.4-8.2)
[2021-05-01] MEDS: THIAMINE HCL 100 MG TABLET (FP) PO SCH (22:29)
[2021-05-01] MEDS: MAG HYDROX/AL HYDROX/SIMETH 30 ML UNIT-DOSE CUP PO PRN (22:32)
[2021-05-01] MEDS: MELATONIN 5 MG TABLETS PO SCH (22:38)
[2021-05-02] MEDS ORDERED: methaDONE HCL 10 MG TABLET ONE (04:31)
[2021-05-02] MEDS ORDERED: methaDONE HCL 40 MG DISPERSABLE TABLET ONE (04:31)
[2021-05-02] MEDS ORDERED: methaDONE HCL 10 MG TABLET PO SCH (06:00)
[2021-05-02] MEDS: methaDONE 80 MG, methaDONE 10 MG PO SCH (06:01)
[2021-05-02] MEDS: diazePAM 5 MG TABLET PO SCH ×4 (06:01→22:23)
[2021-05-02] MEDS: PRENATAL VITAMINS W/ FOLIC ACID TABLET (FP) PO SCH (10:39)
[2021-05-02] MEDS: hydrOXYzine PAMOATE 25 MG CAPSULE (FP) PO PRN (10:39)
[2021-05-02] MEDS: NICOTINE 10 MG CARTRIDGE (INHALER) IH PRN (10:39)
[2021-05-02] MEDS: NICOTINE 14 MG/24 HOURS TOPICAL PATCH TD SCH (10:41)
[2021-05-02] MEDS: HYDROCORTISONE 1% TOPICAL OINT 30 GM TUBE TP PRN (10:42)
[2021-05-02] MEDS: MAG HYDROX/AL HYDROX/SIMETH 30 ML UNIT-DOSE CUP PO PRN (17:39)
[2021-05-02] MEDS: CYCLOBENZAPRINE HCL 10 MG TABLET (FP) PO PRN (17:39)
[2021-05-02] MEDS: IBUPROFEN 400 MG TABLET (FP) PO PRN (22:21)
[2021-05-02] MEDS: THIAMINE HCL 100 MG TABLET (FP) PO SCH (22:22)
[2021-05-02] MEDS: MELATONIN 5 MG TABLETS PO SCH (22:22)
[2021-05-03] MEDS ORDERED: methaDONE HCL 40 MG DISPERSABLE TABLET ONE (04:48)
[2021-05-03] MEDS ORDERED: methaDONE HCL 10 MG TABLET ONE (04:48)
[2021-05-03] MEDS: HYDROCORTISONE 1% TOPICAL OINT 30 GM TUBE TP PRN (05:47)
[2021-05-03] MEDS: methaDONE 80 MG, methaDONE 10 MG PO SCH (05:48)
[2021-05-03] MEDS: diazePAM 5 MG TABLET PO SCH ×3 (05:48→22:40)
[2021-05-03] MEDS: NICOTINE 14 MG/24 HOURS TOPICAL PATCH TD SCH (10:47)
[2021-05-03] MEDS: PRENATAL VITAMINS W/ FOLIC ACID TABLET (FP) PO SCH (10:47)
[2021-05-03] MEDS: NICOTINE 10 MG CARTRIDGE (INHALER) IH PRN (10:48)
[2021-05-03] MEDS: IBUPROFEN 400 MG TABLET (FP) PO PRN ×2 (10:50→22:42)
[2021-05-03] MEDS: CYCLOBENZAPRINE HCL 10 MG TABLET (FP) PO PRN (10:51)
[2021-05-03] MEDS: MAG HYDROX/AL HYDROX/SIMETH 30 ML UNIT-DOSE CUP PO PRN (15:32)
[2021-05-03] MEDS: MELATONIN 5 MG TABLETS PO SCH (22:40)
[2021-05-03] MEDS: THIAMINE HCL 100 MG TABLET (FP) PO SCH (22:40)
[2021-05-04] MEDS ORDERED: methaDONE HCL 10 MG TABLET ONE (04:34)
[2021-05-04] MEDS ORDERED: methaDONE HCL 40 MG DISPERSABLE TABLET ONE (04:35)
[2021-05-04] MEDS: diazePAM 5 MG TABLET PO SCH ×2 (06:42→17:28)
[2021-05-04] MEDS: methaDONE 80 MG, methaDONE 10 MG PO SCH (06:43)
[2021-05-04] MEDS: PRENATAL VITAMINS W/ FOLIC ACID TABLET (FP) PO SCH (10:22)
[2021-05-04] MEDS: NICOTINE 10 MG CARTRIDGE (INHALER) IH PRN (10:23)
[2021-05-04] MEDS: CYCLOBENZAPRINE HCL 10 MG TABLET (FP) PO PRN ×2 (10:24→22:20)
[2021-05-04] MEDS: NICOTINE 14 MG/24 HOURS TOPICAL PATCH TD SCH (10:24)
[2021-05-04] MEDS: diazePAM 5 MG TABLET PO PRN (10:25)
[2021-05-04] MEDS: HYDROCORTISONE 1% TOPICAL OINT 30 GM TUBE TP PRN (17:30)
[2021-05-04] MEDS: IBUPROFEN 400 MG TABLET (FP) PO PRN (22:19)
[2021-05-04] MEDS: MELATONIN 5 MG TABLETS PO SCH (22:20)
[2021-05-04] MEDS: THIAMINE HCL 100 MG TABLET (FP) PO SCH (22:20)
[2021-05-04] MEDS: hydrOXYzine PAMOATE 25 MG CAPSULE (FP) PO PRN (22:20)
[2021-05-05] MEDS ORDERED: methaDONE HCL 40 MG DISPERSABLE TABLET ONE (04:17)
[2021-05-05] MEDS ORDERED: methaDONE HCL 10 MG TABLET ONE (04:17)
[2021-05-05] MEDS: methaDONE 80 MG, methaDONE 10 MG PO SCH (05:47)
[2021-05-05] MEDS ORDERED: diazePAM 5 MG TABLET PO ONE (06:00)
[2021-05-05 09:04] VITALS: BP 95/63; PULSE 79; TEMP 97.1
== END 2021-05-05 09:51 | disposition home or self-care (01) | DRG 773 ==
LOC: YASAS 10:20 → Y3N 11:26
PROVIDERS: ADMIT Allergy & Immunology; ATTEND Allergy & Immunology
PROC: HZ2ZZZZ Detoxification Services for Substance Abuse Treatment (ICD-10-PCS; principal; 2021-05-01)
DX: F10.230 Alcohol dependence with withdrawal, uncomplicated (principal); F11.20 Opioid dependence, uncomplicated; F14.10 Cocaine abuse, uncomplicated; F13.10 Sedative, hypnotic or anxiolytic abuse, uncomplicated; F16.10 Hallucinogen abuse, uncomplicated; F12.20 Cannabis dependence, uncomplicated; F17.210 Nicotine dependence, cigarettes, uncomplicated; F19.280 Other psychoactive substance dependence with psychoactive substance-induced anxiety disorder; F41.9 Anxiety disorder, unspecified; F32.A Depression, unspecified; F43.10 Post-traumatic stress disorder, unspecified; K21.9 Gastro-esophageal reflux disease without esophagitis; H54.62 Unqualified visual loss, left eye, normal vision right eye; G47.00 Insomnia, unspecified; R74.01 Elevation of levels of liver transaminase levels; R63.4 Abnormal weight loss; Z68.20 Body mass index [BMI] 20.0-20.9, adult; Z87.828 Personal history of other (healed) physical injury and trauma; Z87.820 Personal history of traumatic brain injury; Z91.14 Patient's other noncompliance with medication regimen
CPT/HCPCS: 36415; 80053; 85027; 86780; C9803; U0003; U0005

== ENCOUNTER 2021-05-11 10:27 | Inpatient (IN) | payer OTHER ==
[2021-05-11] MEDS ORDERED: ONDANSETRON *ODT* 4 MG TABLET SL PRN (10:47)
[2021-05-11] MEDS ORDERED: MAG HYDROX/AL HYDROX/SIMETH 30 ML UNIT-DOSE CUP PO PRN (10:47)
[2021-05-11] MEDS ORDERED: BISMUTH SUBSALICYLATE 262 MG/15 ML BTL PO PRN (10:47)
[2021-05-11] MEDS ORDERED: ACETAMINOPHEN 325 MG TABLET (FP) PO PRN ×2 (10:47)
[2021-05-11] MEDS ORDERED: MENTHOL/PHENOL 1 EACH UD MM PRN (10:47)
[2021-05-11] MEDS ORDERED: MAGNESIUM HYDROX 2400MG/30ML ORAL SUSPENSION 30 ML CUP PO PRN (10:47)
[2021-05-11] MEDS ORDERED: MAGNESIUM CITRATE 300 ML BOTTLE PO PRN (10:47)
[2021-05-11 11:20] VITALS: BMI 20.5
[2021-05-11] MEDS ORDERED: PERMETHRIN 5% TOPICAL CREAM 60 GM TUBE TP ONE (11:29)
[2021-05-11] MEDS ORDERED: PERMETHRIN (NIX CREAM SCALP RINSE) 59 ML 1% BOTTLE TP ONE (11:30)
[2021-05-11] MEDS ORDERED: PERMETHRIN 5% TOPICAL CREAM 60 GM TUBE ONE (11:43)
[2021-05-11] MEDS ORDERED: diazePAM 5 MG TABLET ONE (12:04)
[2021-05-11] MEDS: diazePAM 5 MG TABLET PO PRN (12:06)
[2021-05-11] MEDS: diazePAM 5 MG TABLET PO SCH ×3 (13:36→22:17)
[2021-05-11] MEDS: METHOCARBAMOL 500 MG TABLET PO PRN (13:54)
[2021-05-11] MEDS: NICOTINE 14 MG/24 HOURS TOPICAL PATCH TD SCH (13:54)
[2021-05-11] MEDS: hydrOXYzine PAMOATE 25 MG CAPSULE (FP) PO SCH ×3 (13:54→22:16)
[2021-05-11] MEDS: PRENATAL VITAMINS W/ FOLIC ACID TABLET (FP) PO SCH (13:54)
[2021-05-11] MEDS: NICOTINE 10 MG CARTRIDGE (INHALER) IH PRN (14:02)
[2021-05-11 14:52] LABS: HEMATOCRIT 43.8 % (35.4-49); HEMOGLOBIN 14.5 GM/dL (11.7-16.9); MCH 31.6 pg (25.7-33.7); MCHC 33.2 g/dl (32.0-35.9); MEAN CELL VOLUME 95.1 fl (80-96); MEAN PLT VOLUME 8.2 fl (7.5-11.1); PLATELET COUNT 227 10^3/uL (134-434); RDW 14.6 % (11.9-15.9); WHITE BLOOD COUNT 5.1 K/mm3 (4.0-10.0)
[2021-05-11 14:57] LABS: CALCIUM 9.3 mg/dL (8.5-10.1)
[2021-05-11 14:58] LABS: BLOOD UREA NITROGEN 19.4 mg/dL (7-18)
[2021-05-11 15:02] LABS: BILIRUBIN,TOTAL 0.6 mg/dL (0.2-1); TOT PROT 7.9 g/dl (6.4-8.2)
[2021-05-11 15:04] LABS: ALBUMIN 3.4 g/dl (3.4-5.0)
[2021-05-11] MEDS ORDERED: MELATONIN 5 MG TABLETS PO SCH (22:00)
[2021-05-11] MEDS: BACITRACIN 0.9 GM PACKET TP SCH (22:17)
[2021-05-11] MEDS: MELATONIN 5 MG TABLETS PO SCH (22:17)
[2021-05-11] MEDS: THIAMINE HCL 100 MG TABLET (FP) PO SCH (22:17)
[2021-05-12] MEDS: diazePAM 5 MG TABLET PO SCH ×4 (05:48→22:16)
[2021-05-12] MEDS: hydrOXYzine PAMOATE 25 MG CAPSULE (FP) PO SCH ×5 (05:48→22:15)
[2021-05-12] MEDS ORDERED: methaDONE HCL 10 MG TABLET ONE (09:02)
[2021-05-12] MEDS ORDERED: methaDONE HCL 40 MG DISPERSABLE TABLET ONE (09:02)
[2021-05-12] MEDS ORDERED: methaDONE HCL 40 MG DISPERSABLE TABLET PO SCH (10:00)
[2021-05-12] MEDS ORDERED: methaDONE 80 MG, methaDONE 10 MG PO SCH (10:00)
[2021-05-12] MEDS: METHOCARBAMOL 500 MG TABLET PO PRN ×2 (10:22→22:15)
[2021-05-12] MEDS: BACITRACIN 0.9 GM PACKET TP SCH ×2 (10:22→22:14)
[2021-05-12] MEDS: PRENATAL VITAMINS W/ FOLIC ACID TABLET (FP) PO SCH (10:22)
[2021-05-12] MEDS: NICOTINE 14 MG/24 HOURS TOPICAL PATCH TD SCH (10:27)
[2021-05-12] MEDS: NICOTINE 10 MG CARTRIDGE (INHALER) IH PRN ×2 (10:27→17:44)
[2021-05-12] MEDS: THIAMINE HCL 100 MG TABLET (FP) PO SCH (22:15)
[2021-05-12] MEDS: MELATONIN 5 MG TABLETS PO SCH (22:15)
[2021-05-13] MEDS ORDERED: methaDONE HCL 10 MG TABLET ONE (04:14)
[2021-05-13] MEDS ORDERED: methaDONE HCL 40 MG DISPERSABLE TABLET ONE (04:15)
[2021-05-13] MEDS: methaDONE 80 MG, methaDONE 10 MG PO SCH (05:30)
[2021-05-13] MEDS: NICOTINE 10 MG CARTRIDGE (INHALER) IH PRN ×5 (05:31→22:15)
[2021-05-13] MEDS: diazePAM 5 MG TABLET PO SCH ×3 (05:31→22:13)
[2021-05-13] MEDS: hydrOXYzine PAMOATE 25 MG CAPSULE (FP) PO SCH ×5 (05:31→23:50)
[2021-05-13] MEDS: IBUPROFEN 400 MG TABLET (FP) PO PRN (07:44)
[2021-05-13] MEDS: BACITRACIN 0.9 GM PACKET TP SCH ×2 (10:14→22:12)
[2021-05-13] MEDS: METHOCARBAMOL 500 MG TABLET PO PRN (10:15)
[2021-05-13] MEDS: NICOTINE 14 MG/24 HOURS TOPICAL PATCH TD SCH (10:15)
[2021-05-13] MEDS: PRENATAL VITAMINS W/ FOLIC ACID TABLET (FP) PO SCH (10:15)
[2021-05-13] MEDS: diazePAM 5 MG TABLET PO PRN ×2 (10:15→17:37)
[2021-05-13] MEDS ORDERED: MAGNESIUM HYDROX 2400MG/30ML ORAL SUSPENSION 30 ML CUP PO ONE (11:29)
[2021-05-13] MEDS: FAMOTIDINE 20 MG TABLET PO SCH ×2 (13:22→22:12)
[2021-05-13] MEDS: THIAMINE HCL 100 MG TABLET (FP) PO SCH (22:12)
[2021-05-13] MEDS: MELATONIN 5 MG TABLETS PO SCH (22:14)
[2021-05-14] MEDS ORDERED: methaDONE HCL 10 MG TABLET ONE (04:09)
[2021-05-14] MEDS ORDERED: methaDONE HCL 40 MG DISPERSABLE TABLET ONE (04:09)
[2021-05-14] MEDS: methaDONE 80 MG, methaDONE 10 MG PO SCH (05:29)
[2021-05-14] MEDS: diazePAM 5 MG TABLET PO SCH ×2 (05:30→17:32)
[2021-05-14] MEDS: NICOTINE 10 MG CARTRIDGE (INHALER) IH PRN ×4 (05:35→22:33)
[2021-05-14] MEDS: hydrOXYzine PAMOATE 25 MG CAPSULE (FP) PO SCH ×4 (05:48→22:51)
[2021-05-14] MEDS: FAMOTIDINE 20 MG TABLET PO SCH ×2 (10:24→22:33)
[2021-05-14] MEDS: BACITRACIN 0.9 GM PACKET TP SCH ×2 (10:24→22:33)
[2021-05-14] MEDS: NICOTINE 14 MG/24 HOURS TOPICAL PATCH TD SCH (10:24)
[2021-05-14] MEDS: PRENATAL VITAMINS W/ FOLIC ACID TABLET (FP) PO SCH (10:24)
[2021-05-14] MEDS: METHOCARBAMOL 500 MG TABLET PO PRN ×2 (10:25→17:35)
[2021-05-14] MEDS: IBUPROFEN 400 MG TABLET (FP) PO PRN ×2 (10:26→17:35)
[2021-05-14] MEDS: DOCUSATE SODIUM 100 MG CAPSULE (FP) PO SCH ×2 (14:30→22:33)
[2021-05-14] MEDS: THIAMINE HCL 100 MG TABLET (FP) PO SCH (22:33)
[2021-05-14] MEDS: MELATONIN 5 MG TABLETS PO SCH (22:33)
[2021-05-15] MEDS ORDERED: methaDONE HCL 40 MG DISPERSABLE TABLET ONE (04:11)
[2021-05-15] MEDS ORDERED: methaDONE HCL 10 MG TABLET ONE (04:11)
[2021-05-15] MEDS ORDERED: diazePAM 5 MG TABLET PO ONE (06:00)
[2021-05-15] MEDS: methaDONE 80 MG, methaDONE 10 MG PO SCH (06:00)
[2021-05-15] MEDS: hydrOXYzine PAMOATE 25 MG CAPSULE (FP) PO SCH (06:00)
[2021-05-15] MEDS: DOCUSATE SODIUM 100 MG CAPSULE (FP) PO SCH (06:00)
[2021-05-15] MEDS: NICOTINE 10 MG CARTRIDGE (INHALER) IH PRN (07:31)
[2021-05-15 09:25] VITALS: BP 106/71; PULSE 83; TEMP 98.7
[2021-05-15] MEDS: BACITRACIN 0.9 GM PACKET TP SCH (10:32)
[2021-05-15] MEDS: PRENATAL VITAMINS W/ FOLIC ACID TABLET (FP) PO SCH (10:32)
[2021-05-15] MEDS: FAMOTIDINE 20 MG TABLET PO SCH (10:32)
[2021-05-15] MEDS: NICOTINE 14 MG/24 HOURS TOPICAL PATCH TD SCH (10:32)
[2021-05-15 11:25] LABS: ALBUMIN 3.4 g/dl (3.4-5.0)
[2021-05-15 11:28] LABS: BILIRUBIN,DIRECT 0.1 mg/dL (0.0-0.2)
[2021-05-15 11:29] LABS: BILIRUBIN,TOTAL 0.3 mg/dL (0.2-1)
[2021-05-15 11:30] LABS: TOT PROT 8.2 g/dl (6.4-8.2)
== END 2021-05-15 09:50 | disposition other institution (70) | DRG 773 ==
LOC: YASAS 10:27 → Y6N 11:26
PROVIDERS: ADMIT Allergy & Immunology; ATTEND Allergy & Immunology
PROC: HZ2ZZZZ Detoxification Services for Substance Abuse Treatment (ICD-10-PCS; principal; 2021-05-11)
DX: F10.230 Alcohol dependence with withdrawal, uncomplicated (principal); F11.20 Opioid dependence, uncomplicated; F14.20 Cocaine dependence, uncomplicated; F13.10 Sedative, hypnotic or anxiolytic abuse, uncomplicated; F16.10 Hallucinogen abuse, uncomplicated; F12.10 Cannabis abuse, uncomplicated; F17.210 Nicotine dependence, cigarettes, uncomplicated; F19.282 Other psychoactive substance dependence with psychoactive substance-induced sleep disorder; F19.24 Other psychoactive substance dependence with psychoactive substance-induced mood disorder; F39 Unspecified mood [affective] disorder; F43.10 Post-traumatic stress disorder, unspecified; F90.9 Attention-deficit hyperactivity disorder, unspecified type; F41.0 Panic disorder [episodic paroxysmal anxiety]; H54.62 Unqualified visual loss, left eye, normal vision right eye; K21.9 Gastro-esophageal reflux disease without esophagitis; B18.2 Chronic viral hepatitis C; R73.9 Hyperglycemia, unspecified; R74.01 Elevation of levels of liver transaminase levels; R63.4 Abnormal weight loss; Z68.20 Body mass index [BMI] 20.0-20.9, adult; Z86.69 Personal history of other diseases of the nervous system and sense organs; Z87.820 Personal history of traumatic brain injury; Z59.01 Sheltered homelessness
CPT/HCPCS: 36415; 80053; 80076; 82947; 82962; 85027; 86780; C9803; U0003; U0005

== ENCOUNTER 2021-09-16 23:15 | Emergency (ER) | payer OTHER ==
[2021-09-16 23:41] VITALS: BP 133/85; PULSE 65; TEMP 97.6; BMI 21.5
[2021-09-17] MEDS ORDERED: DIPHTH,PERTUSS(ACELL),TET 0.5 ML DISP.SYRIN IM ONE ×2 (00:04→00:14)
[2021-09-17] MEDS ORDERED: VANCOMYCIN 1 GM in D5W (PRE-DOCKED) 1,000 MG/250 ML IVPB ONE (00:04)
[2021-09-17] MEDS ORDERED: VANCOMYCIN 1 GRAM (PRE-DOCKED) 1,000 MG/250 ML BAG IVPB ONE (00:14)
[2021-09-17] MEDS ORDERED: CLINDAMYCIN HCL 150 MG CAPSULE (FP) PO ONE (01:35)
[2021-09-17] MEDS ORDERED: CLINDAMYCIN HCL 150 MG CAPSULE (FP) ONE (01:37)
== END 2021-09-17 02:10 | disposition home or self-care (01) ==
LOC: JER 23:15
PROC: 3E0234Z Introduction of Serum, Toxoid and Vaccine into Muscle, Percutaneous Approach (ICD-10-PCS; principal; 2021-09-16)
PROC: 3E03329 Introduction of Other Anti-infective into Peripheral Vein, Percutaneous Approach (ICD-10-PCS; 2021-09-16)
DX: L02.414 Cutaneous abscess of left upper limb (principal)
CPT/HCPCS: 71046-TC-FY; 90471; 90715; 93005; 93010; 96374; 99285-25